=== PATIENT | female | born 1975 | race Caucasian/White ===

== ENCOUNTER 2020-04-07 11:35 | Emergency (ER) | payer OTHER ==
[~2020-04-07] VITALS: Ht 165.1 cm; Wt 68.2 kg
[2020-04-07 11:47] VITALS: TEMP 97.4
[2020-04-07 12:34] LABS: COLLECTION METHOD CLEAN CATCH
[2020-04-07 12:47] LABS: MUCOUS Present /lpf; PH 6 (5-8); URINE APPEARANCE Cloudy; URINE BACTERIA Rare /hpf; URINE BILIRUBIN Negative (NEGATIVE); URINE BLOOD Negative (NEGATIVE); URINE COLOR Yellow; URINE GLUCOSE Negative (NEGATIVE); URINE KETONE Negative (NEGATIVE); URINE LEUKOCYTE ESTERASE Trace (NEGATIVE); URINE NITRATE Positive (NEGATIVE); URINE PROTEIN(semi-quant) 2+ (NEGATIVE); URINE RBC 0-2 /hpf; URINE UROBILINOGEN Negative (NEGATIVE)
[2020-04-07 13:48] LABS: BASO # 0.1 (0.0-0.2); EOS # 0.1 (0.0-0.7); EOS % 0.8 % (0-4.0); GRAN # 7.8 (1.4-6.5); GRAN % 67.5 % (42.2-75.2); HEMOGLOBIN 11.2 g/dl (12.5-16.0); LYMPH # 2.4 (1.2-3.4); LYMPH % 21.3 % (20.0-51.0); MEAN CELL VOLUME 82 fl (80.0-100.0); MEAN CORPUSCULAR HEMOGLOBIN 28 pg (27.0-31.0); MEAN CORPUSCULAR HGB CONC 34 g/dl (33.0-37.0); MEAN PLATELET VOLUME 8.8 fl (7.4-10.4); MONO % 8.6 % (1.7-9.3); PLATELET COUNT 291 K/mm3 (130-400); RED BLOOD COUNT 4.05 M/mm3 (4.10-5.30); REDCELL DISTRIBUTION WIDTH-CV 14.3 % (11.5-14.5)
[2020-04-07 14:04] LABS: HEMATOCRIT 33.1 % (37.0-47.0)
[2020-04-07] MEDS ORDERED: NORVASC 10MG10 MG PO (14:20)
[2020-04-07] MEDS ORDERED: OMNICEF 300MG300 MG PO (14:58)
[2020-04-07 15:10] VITALS: BP 185/133; PULSE 113
== END 2020-04-07 15:08 | disposition home or self-care (01) ==
LOC: COL.ER 11:35
PROVIDERS: Nurse Practitioner Primary Care
DX: N39.0 Urinary tract infection, site not specified (principal); F17.200 Nicotine dependence, unspecified, uncomplicated; Z32.02 Encounter for pregnancy test, result negative; Z88.0 Allergy status to penicillin; Z88.8 Allergy status to other drugs, medicaments and biological substances
CPT/HCPCS: J1885; J2405; J7030

== ENCOUNTER 2020-06-24 20:22 | Emergency (ER) | payer MEDICAID ==
[~2020-06-24] VITALS: Ht 165.1 cm; Wt 75.0 kg
[~2020-06-24 20:22] MED LIST: NORVASC 10MG10 MG PO; OMNICEF 300MG300 MG PO
[2020-06-24 20:38] VITALS: TEMP 97.4
[2020-06-24 22:42] LABS: BASO # 0.1 (0.0-0.2); BASO % 0.9 % (0.0-2.0); EOS # 0.1 (0.0-0.7); EOS % 0.5 % (0-4.0); GRAN # 9.4 (1.4-6.5); GRAN % 79.3 % (42.2-75.2); HEMOGLOBIN 11.1 g/dl (12.5-16.0); LYMPH # 1.6 (1.2-3.4); LYMPH % 13.8 % (20.0-51.0); MEAN CELL VOLUME 83 fl (80.0-100.0); MEAN CORPUSCULAR HEMOGLOBIN 26 pg (27.0-31.0); MEAN CORPUSCULAR HGB CONC 32 g/dl (33.0-37.0); MONO # 0.6 (0.1-0.6); MONO % 5.1 % (1.7-9.3); PLATELET COUNT 331 K/mm3 (130-400); RED BLOOD COUNT 4.21 M/mm3 (4.10-5.30); REDCELL DISTRIBUTION WIDTH-CV 17.4 % (11.5-14.5)
[2020-06-24 22:59] LABS: ALANINE AMINOTRANSFERASE 21 U/L (4-34); ALBUMIN 3.7 gm/dL (3.5-5.0); ALKALINE PHOSPHATASE 110 U/L (50-136); ANION GAP 12 mmol/L (7-16); AST,SGOT 31 U/L (15-37); BILIRUBIN,TOTAL 0.4 mg/dL (0.0-1.0); BLOOD UREA NITROGEN 34 mg/dL (7-17); C-REACTIVE PROTEIN < 0.5 mg/dL (0.0-0.9); CALCIUM 8.5 mg/dL (8.4-10.2); CHLORIDE 112 mmol/L (98-107); CREATININE, serum 1.82 (0.52-1.25); GLUCOSE 100 mg/dL (74-106); LIPASE 220 U/L (23-300); POTASSIUM 3.3 mmol/L (3.4-5.0); SODIUM 137 mmol/L (137-145); TOTAL PROTEIN 7.3 gm/dL (6.4-8.2)
[2020-06-24 23:00] LABS: CARBON DIOXIDE 13 mmol/L (22-30)
[2020-06-24] MEDS ORDERED: BACID PROBIOTIC1 TAB (23:50)
[2020-06-24] MEDS ORDERED: SODIUM BICARBO650 MG PO ×2 (23:51→23:52)
[2020-06-24] MEDS ORDERED: DILAUDID 4MG TAB4 MG PO (23:52)
[2020-06-24] MEDS ORDERED: LOMOTIL 0.025 M1 TAB PO (23:53)
[2020-06-24] MEDS ORDERED: PROTONIX 40MG T40 MG PO (23:54)
[2020-06-24] MEDS ORDERED: MAG OX 250 (23:55)
[2020-06-25 02:30] VITALS: BP 182/120; PULSE 99
== END 2020-06-25 02:30 | disposition short-term general hospital (02) ==
LOC: COL.ER 20:22
PROVIDERS: Emergency Medicine
DX: E86.0 Dehydration (principal); I11.0 Hypertensive heart disease with heart failure; I50.9 Heart failure, unspecified; N28.9 Disorder of kidney and ureter, unspecified; R10.10 Upper abdominal pain, unspecified; F17.200 Nicotine dependence, unspecified, uncomplicated; Z93.3 Colostomy status; Z88.0 Allergy status to penicillin; Z87.19 Personal history of other diseases of the digestive system; Z88.1 Allergy status to other antibiotic agents
CPT/HCPCS: J2270